=== PATIENT | female | born 1990 | race Caucasian/White ===

== ENCOUNTER 2016-12-23 20:39 | Emergency (ER) | payer BC ==
--- NOTE | 2016-12-23 21:14 | UC ---
Dizzy HPI HPI Summary: 26 yo female has had three episodes of near syncope today First one after suddenly standing from seated position Next two while seated vision tunnels no preceding palpitation or cp no ABRAMS was outdoors today working at [employer] feels out of sorts - History Of Current Complaint Chief Complaint: UCGeneralIllness Stated Complaint: FEELS LIKE PASSING OUT Time Seen by Provider: 12/23/16 20:49 Hx Obtained From: Patient Hx Last Menstrual Period: nexplanon implant Onset/Duration: Sudden Onset Timing: Intermittent Episode Lasting - seconds Severity Initially: Mild Severity Currently: None Pain Intensity: 0 Pain Scale Used: 0-10 Numeric Character: Lightheaded Aggravating Factor(s): Position Change Alleviating Factor(s): Nothing Associated Signs And Symptoms: Positive: Negative - Risk Factors Cardiac Risk Factors: Negative CVA Risk Factor: Negative - Allergies/Home Medications Allergies/Adverse Reactions: Allergies Allergy/AdvReac Type Severity Reaction Status Date / Time Chocolate Allergy Hives Verified 12/23/16 20:47 Montelukast [From Singulair] Allergy Hives Verified 12/23/16 20:47 Morphine and Related Allergy Anaphylatic Verified 12/23/16 20:47 Shock cellary Allergy Hives Uncoded 12/23/16 20:47 peanuts Allergy Hives Uncoded 12/23/16 20:47 shellfish Allergy Anaphylatic Uncoded 12/23/16 20:47 Shock Home Medications: Home Medications Loratadine [Claritin 10 MG CAP] 10 mg PO DAILY 12/23/16 [History Confirmed 12/23] NK [No Home Medications Reported] 12/23/16 [History Confirmed 12/23/16] PMH/Surg Hx/FS Hx/Imm Hx Previously Healthy: Yes Cardiovascular History: Other - cardiac ablasion x 3 Other Cardiovascular History: ablations x 3 - Surgical History Surgical History: Yes Surgery Procedure, Year, and Place: cardiac ablation. AC joint reconstruction 2016 - Social History Alcohol Use: Rare Substance Use Type: None Smoking Status (MU): Never Smoked Tobacco Review of Systems Constitutional: Negative Skin: Negative Eyes: Negative ENT: Negative Respiratory: Negative Cardiovascular: Negative Gastrointestinal: Negative Genitourinary: Negative Motor: Negative Neurovascular: Negative Musculoskeletal: Negative Neurological: Weakness Psychological: Negative All Other Systems Reviewed And Are Negative: Yes Physical Exam Triage Information Reviewed: Yes Appearance: Well-Appearing, No Pain Distress, Well-Nourished Vital Signs: Initial Vital Signs Temp 99.1 F 12/23/16 20:40 Pulse 84 12/23/16 20:40 Resp 16 12/23/16 20:40 BP 123/74 12/23/16 20:40 Pulse Ox 100 12/23/16 20:40 Vital Signs Reviewed: Yes Eyes: Positive: Conjunctiva Clear ENT: Positive: Hearing grossly normal. Negative: Nasal congestion, Nasal drainage, Trismus, Muffled/hoarse voice Dental Exam: Normal Neck: Positive: Supple, Nontender, No Lymphadenopathy Respiratory: Positive: Lungs clear, Normal breath sounds, No respiratory distress Cardiovascular: Positive: RRR, No Murmur Musculoskeletal: Positive: ROM Intact, No Edema Neurological Exam: Normal Neurological: Positive: Alert Psychological Exam: Normal Skin Exam: Normal Diagnostics - EKG Cardiac Rate: NL Cardiac Rhythm: Sinus: Normal Ectopy: None ST Segment: Normal Re-Evaluation - Re-Evaluation First Eval Re-Evaluation Time: 22:20 Change: Improved - feels better but not back to normal Dizzy Course/Dx - Differential Dx/Diagnosis Provider Diagnoses: near syncope /suspect due to dehydration Discharge - Discharge Plan Condition: Stable Disposition: HOME Patient Education Materials: Near Syncope (ED) Forms: *Work Release Referrals: Cesar Abarca DO [Primary Care Provider] - 1 Day
[2016-12-23] MEDS ORDERED: NS 0.9% 1000 ML* 1,000 ML BOLUS ONE (21:23)
[2016-12-23 22:45] VITALS: BP 109/74
== END 2016-12-23 22:45 | disposition home or self-care (01) ==
LOC: UCCORT 20:39
DX: R55 Syncope and collapse (principal); Z88.5 Allergy status to narcotic agent
CPT/HCPCS: 93005; 96360; 99202; G0463

== ENCOUNTER 2018-02-18 12:23 | Emergency (ER) | payer BC, OTHER ==
[2018-02-18 13:06] VITALS: BP 101/67
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
--- NOTE | 2018-02-18 14:20 | RAD ---
INDICATION: Left shoulder pain. History of AC joint surgery COMPARISON: None TECHNIQUE: Routine frontal, Y and axial views were obtained. FINDINGS: There is presumed resection of the distal clavicle versus osteolysis. The bony structures, joint spaces, and soft tissues are otherwise normal. IMPRESSION: PRESUMED RESECTION OF THE DISTAL CLAVICLE AND (SEE ABOVE)
== END 2018-02-18 14:41 | disposition home or self-care (01) ==
LOC: UCEAST 12:23
DX: M25.512 Pain in left shoulder (principal); Z88.5 Allergy status to narcotic agent; Z91.010 Allergy to peanuts; Z91.013 Allergy to seafood; Z88.8 Allergy status to other drugs, medicaments and biological substances; Z91.018 Allergy to other foods
CPT/HCPCS: 99212; G0463

== ENCOUNTER 2018-07-07 10:10 | Emergency (ER) | payer BC, OTHER ==
--- OUTSIDE RECORDS SUMMARY | 2018-07-07 10:20 | XMS REPORT ---
:1990 Author Organization [facility] Address [address] [place] [address] Care Team Providers Name Role Phone Parag Maguire Unavailable Unavailable PROBLEMS Type Condition ICD9-CM Code [id number]-VT Code Onset Condition SNOMED Code Dates Status Problem Family history Z80.3 Active [id number] of malignant neoplasm of breast ALLERGIES Substance Reaction Event Type Date Status Shellfish anaphylaxis Drug Allergy Jun, Active Singulair hives Drug Allergy Jun, Active Morphine ER anaphylaxis Drug Allergy Jun, Active ENCOUNTERS Encounter Location Date Diagnosis [facility] [address] Aug, 2018 OBGYN [place], [place] [id number] [facility] [address], [place] [id number] [facility] [address], Family history of OBGYN [facility], malignant neoplasm of [place] [id number] breast Z80.3 ; Encounter for other general counseling and advice on contraception Z30.09 and Encounter for contraceptive management, unspecified Z30.9 IMMUNIZATIONS No Known Immunizations SOCIAL HISTORY Never Assessed REASON FOR REFERRAL FUNCTIONAL STATUS PLAN OF CARE Activity Details Follow Up Schedule annual and f/u MyRisk in 6 weeks (if ins active). Schedule laparoscopy/BS. No med clearance. 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 Providers [facility] Health Member Patient Patient Patient Patient Patient Subscriber Subscriber Subscriber Group Insurance Plan Plan Plan Plan ID Relationship Address Phone Name Date of ID Name Date of No Type Insurance Insurance Insurance Coverage to Subscriber Address Phone Name Dates [employer] [phone] [employer] self Sallie [id number] Blue [id number] 89 Blue [place] 4 Cross/Blue [place] Cross/Blue Shield [id number] Shield MEDICAL (GENERAL) HISTORY Type Description Date Medical History Hypothyroidism Surgical History C section 2008 Surgical History Left shoulder AC joint reconstruction Hospitalization History see above Hospitalization History PROM 3 weeks hospitalized
[2018-07-07 12:45] VITALS: BP 115/65
--- NOTE | 2018-07-07 13:15 | UC ---
Abdominal Pain Female HPI - HPI Summary HPI Summary: The patient is a 28-year-old female with a 3 day history of gross hematuria. She has no dysuria. She has slight increased frequency of urination. She denies any fever or chills. She denies any nausea or vomiting. She was told at one time that she had 11 stones in her kidneys. No vaginal discharge or itching. She states that she has passed multiple kidney stones in the past. - History of Current Complaint Chief Complaint: UCGU Stated Complaint: URINARY Time Seen by Provider: 07/07/18 13:04 Hx Obtained From: Patient Hx Last Menstrual Period: implant Onset/Duration: Gradual Onset, Lasting Days Severity Initially: Mild Severity Currently: Mild Pain Intensity: 1 Pain Scale Used: 0-10 Numeric Location: Other - lower back Radiates to: Back Character: Dull Aggravating Factor(s): Nothing Alleviating Factor(s): Nothing Associated Signs and Symptoms: Positive: Negative Allergies/Adverse Reactions: Allergies Allergy/AdvReac Type Severity Reaction Status Date / Time morphine Allergy anaph Verified 07/07/18 12:43 cellary Allergy Hives Uncoded 07/07/18 12:43 peanuts Allergy Hives Uncoded 07/07/18 12:43 shellfish Allergy Anaphylatic Uncoded 07/07/18 12:43 Shock singular Allergy Hives Uncoded 07/07/18 12:43 Home Medications: Home Medications Etonogestrel [Nexplanon] 68 mg IMPLANT ONCE 07/07/18 [History Confirmed 07/07/18 ] PMH/Surg Hx/FS Hx/Imm Hx Previously Healthy: Yes GI/ History: Kidney Stones - Surgical History Surgical History: Yes Surgery Procedure, Year, and Place: cardiac ablation. AC joint reconstruction 2016. x1 - Family History Known Family History: Positive: Hypertension - Social History Alcohol Use: None Substance Use Type: None Smoking Status (MU): Never Smoked Tobacco Review of Systems All Other Systems Reviewed And Are Negative: Yes Constitutional: Positive: Negative Skin: Positive: Negative Eyes: Positive: Negative ENT: Positive: Negative Respiratory: Positive: Negative Cardiovascular: Positive: Negative Gastrointestinal: Positive: Negative Genitourinary: Positive: Hematuria Motor: Positive: Negative Neurovascular: Positive: Negative Musculoskeletal: Positive: Negative Neurological: Positive: Negative Psychological: Positive: Negative Physical Exam Triage Information Reviewed: Yes Appearance: Well-Appearing, No Pain Distress, Well-Nourished Vital Signs: Initial Vital Signs Temp 97.7 F 07/07/18 12:41 Pulse 78 07/07/18 12:41 Resp 14 07/07/18 12:41 BP 115/65 07/07/18 12:41 Pulse Ox 99 07/07/18 12:41 Eye Exam: Normal ENT: Positive: Hearing grossly normal. Negative: Nasal congestion, Nasal drainage, Trismus, Muffled voice, Hoarse voice Neck: Positive: Supple Respiratory: Positive: Lungs clear, Normal breath sounds, No respiratory distress Cardiovascular: Positive: RRR, No Murmur Musculoskeletal: Positive: ROM Intact, No Edema Neurological: Positive: Alert Psychological Exam: Normal Skin Exam: Normal Diagnostics - Laboratory Diagnostic Studies Completed/Ordered: UA. +++ rbcs Abd Pain Female Course/Dx - Differential Dx/Diagnosis Provider Diagnosis: Hematuria, History of kidney stones Discharge - Sign-Out/Discharge Documenting (check all that apply): Patient Departure All imaging exams completed and their final reports reviewed: No Studies - Discharge Plan Condition: Stable Disposition: HOME Patient Education Materials: Kidney Stones (ED), Hematuria (ED) Referrals: Cydney Middleton MD [Medical Doctor] - 2 Weeks Additional Instructions: drink 12 glasses of water/day to ER for increased pain fever vomiting aleve 1-2 twice daily as needed for pain I suggest you see a urologist I suspect the blood in your urine is due to kidney stones that are currently not obstructing your system - Billing Disposition and Condition Condition: STABLE Disposition: Home
== END 2018-07-07 13:21 | disposition home or self-care (01) ==
LOC: UCCORT 10:10
DX: R31.0 Gross hematuria (principal); Z87.442 Personal history of urinary calculi; Z88.5 Allergy status to narcotic agent; Z88.8 Allergy status to other drugs, medicaments and biological substances
CPT/HCPCS: 81003; 87086; 99212; G0463

== ENCOUNTER 2019-05-22 10:06 | Emergency (ER) | payer BC, OTHER ==
[2019-05-22 11:17] VITALS: BP 120/78
--- NOTE | 2019-05-22 12:06 | UC ---
Headache HPI - HPI Summary HPI Summary: 29-year-old female who has had a progressively worsening headache over the past 6 days. It was not a sudden onset headache however it involves her entire head and she describes it as throbbing. She has no history of headaches as an adult. She states as a child she did get headaches frequently but they resolved with medication. She denies nausea however states yesterday she did not eat anything because she just didn't feel like it. She denies any cold symptoms or any other symptoms of illness. She denies any weakness. She states this is the worst headache she has ever had. - History Of Current Complaint Chief Complaint: UCHeadaanderson Stated Complaint: ABRAMS Hx Obtained From: Patient Hx Last Menstrual Period: "Like, two weeks ago, I think." ?: No Onset/Duration: Gradual Onset, Lasting Days Onset Of Symptoms: Gradual, Still Present Initially Headache Was: "Worst Headache Ever" Pain Intensity: 8 Timing: Constant Character: Dull, Throbbing Location of Headache: Diffuse Aggravating Factor(s): Bright Lights - She states the lights do not hurt her allergies however they are "annoying". Allevating Factor(s): Nothing Associated Signs And Symptoms: Positive: Nausea - Patient denies nausea however she states yesterday she did not have an appetite. - Allergies/Home Medications Allergies/Adverse Reactions: Allergies Allergy/AdvReac Type Severity Reaction Status Date / Time celery Allergy Hives Verified 05/22/19 11:11 montelukast [From Singulair] Allergy Hives Verified 05/22/19 11:11 morphine Allergy Anaphylatic Verified 05/22/19 11:11 Shock peanut Allergy Hives Verified 05/22/19 11:11 shellfish derived Allergy Anaphylatic Verified 05/22/19 11:11 Shock Home Medications: Home Medications Aspirin/Acetaminophen/Caffeine [Excedrin Migraine Caplet] 2 each PO Q12H PRN 05/30 [History Confirmed 05/22/19] Ibuprofen TAB* [Advil TAB*] 800 mg PO Q8H PRN 05/22/19 [History Confirmed ] Levothyroxine TAB* [Synthroid TAB*] 75 mcg PO MOTUWETHFRSA 05/22/19 [History Confirmed 05/22/19] Levothyroxine TAB* [Synthroid TAB*] 150 mcg PO GUEVARA 05/22/19 [History Confirmed ] LoraTADine TAB(NF) [Claritin 10 MG TAB(NF)] 10 mg PO DAILY PRN 05/22/19 [ History Confirmed 05/22/19] oxyCODONE/Acetamin 5/325 MG* [Percocet 5/325 TAB*] 1 tab PO ONCE 05/22/19 [ History Confirmed 05/22/19] PMH/Surg Hx/FS Hx/Imm Hx Previously Healthy: Yes Endocrine History: Thyroid Disease - Tracy's thyroiditis. Cardiovascular History: Other - Cardiac ablation 3 in the past. - Surgical History Surgical History: Yes Surgery Procedure, Year, and Place: cardiac ablation. AC joint reconstruction 2016. 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 Alcohol Use: None Substance Use Type: None Smoking Status (MU): Never Smoked Tobacco Review of Systems All Other Systems Reviewed And Are Negative: Yes Neurological: Positive: Headache - Patient states this is a worse headache she' s ever had and "I don't get headaches".. Negative: Weakness, Paresthesia, Numbness Physical Exam Triage Information Reviewed: Yes Appearance: Well-Appearing, No Pain Distress, Well-Nourished Vital Signs: Initial Vital Signs Temp 97.9 F 05/22/19 11:04 Pulse 64 05/22/19 11:04 Resp 16 05/22/19 11:04 BP 120/78 05/22/19 11:04 Pulse Ox 100 05/22/19 11:04 Vital Signs Reviewed: Yes Eyes: Positive: Conjunctiva Clear - PERRLA, EOMI ENT: Positive: Hearing grossly normal, Pharynx normal, TMs normal, Uvula midline Neck: Positive: Supple, Nontender, No Lymphadenopathy Respiratory: Positive: Lungs clear, Normal breath sounds, No respiratory distress, No accessory muscle use Cardiovascular: Positive: RRR, No Murmur, Pulses Normal, Brisk Capillary Refill Abdomen Description: Positive: Nontender, No Organomegaly, Soft. Negative: CVA Tenderness (R), CVA Tenderness (L), Hepatomegaly, Splenomegaly Bowel Sounds: Positive: Present Musculoskeletal: Positive: Strength Intact, ROM Intact - Good peripheral pulses , neuro sensation and capillary refill. Good arm and leg strength against resistance. Full range of motion. Neurological: Positive: Alert, Muscle Tone Normal - Cranial nerves II through XII are intact. Romberg negative. Normal dystidiokinesis, good finger to nose bilaterally, no eye drift, good heel-to-toe forward and backward, good heel-to- nur bilaterally. Alert and oriented 3. Skin Exam: Normal Headache Course/Dx - Course Course Of Treatment: Given the patient's lack of headache history and the fact that this is the worst headache of her life and progressively worsening over the past week, after discussion with Dr. Joyner it was felt she would be better served going to the local emergency department for further care. The patient is agreeable to this. She refuses an ambulance and prefers to drive herself to the emergency room. She was advised if she has any problems between here and there to plant puller and call 911. The patient is agreeable to this plan of action. - Differential Dx/Diagnosis Provider Diagnosis: Headache Discharge ED - Sign-Out/Discharge Documenting (check all that apply): Patient Departure All imaging exams completed and their final reports reviewed: No Studies - Discharge Plan Condition: Fair Disposition: HOME-RECOMMEND TO ED Referrals: Claribel Soria NP [Primary Care Provider] - Additional Instructions: Go to the ER directly from here for further care. If you have any concerns along the way, plant puller and call 911. - Billing Disposition and Condition Condition: FAIR Disposition: Home-Recommend to ED
== END 2019-05-22 12:11 | disposition home health service (06) ==
LOC: UCCORT 10:06
DX: R51 Headache (principal); E06.3 Autoimmune thyroiditis; Z88.5 Allergy status to narcotic agent; Z91.010 Allergy to peanuts; Z91.013 Allergy to seafood; Z88.8 Allergy status to other drugs, medicaments and biological substances; Z91.018 Allergy to other foods
CPT/HCPCS: 99212; G0463